=== PATIENT | male | born 1935 | race African-American/Black ===

== ENCOUNTER 2017-04-17 12:54 | Inpatient (IN) | payer MEDICARE ==
[~2017-04-17] VITALS: Ht 180.3 cm; Wt 64.1 kg
[2017-04-17 14:35] LABS: BASOPHILS % 0.7 % (0.0-2.0); EOSINOPHILS % 2.5 % (0.0-5.0); HEMOGLOBIN. 11.6 g/dL (14.0-18.0); LYMPHOCYTES % 41.3 % (20.0-50.0); MEAN CORPUSCULAR HEMOGLOBIN 26.3 pg (28.0-32.0); MEAN CORPUSCULAR VOLUME 79.4 fL (80.0-94.0); MONOCYTES % 9.7 % (2.0-8.0); NEUTROPHILS % 45.8 % (40.0-76.0); PLATELET 246 x1000/uL (130-400); RED BLOOD CELL COUNT 4.41 mill/uL (4.7-6.1); RED CELL DISTRIBUTION WIDTH 15.1 % (11.6-14.6)
[2017-04-17 14:41] LABS: INR 1.1; PROTHROMBIN TIME 10.9 sec
[2017-04-17 14:48] LABS: CARBON DIOXIDE 31 mEq/L (21-32); CHLORIDE 107 mEq/L (98-107)
[2017-04-17] MEDS ORDERED: ASPIRIN 325MG EC TABLET PO ONE (15:45)
[2017-04-17] MEDS ORDERED: DIPHENHYDRAMINE 50MG/ML VIAL IV PRN (18:00)
[2017-04-17] MEDS ORDERED: MAGNESIUM/ALUMINUM HYDROXIDE/SIMETHICONE 30ML UDC PO PRN (18:00)
[2017-04-17] MEDS ORDERED: NITROGLYCERIN 0.4MG TABLET SL SL PRN (18:00)
[2017-04-17] MEDS ORDERED: IPRATROPIUM/ALBUTEROL 0.5-3(2.5)MG/3ML NEB INH PRN (18:00)
[2017-04-17] MEDS ORDERED: CLONIDINE 0.1MG TABLET PO PRN (18:00)
[2017-04-17] MEDS ORDERED: NA PHOS,M-B/NA PHOS,DI-BA ENEMA 118ML PR PRN (18:00)
[2017-04-17] MEDS ORDERED: ACETAMINOPHEN 325MG TABLET PO PRN (18:00)
[2017-04-17] MEDS ORDERED: GUAIFENESIN 200MG/10ML SUGAR FREE UDC PO PRN (18:00)
[2017-04-17] MEDS ORDERED: TRAMADOL 50MG TABLET PO PRN (18:00)
[2017-04-17] MEDS ORDERED: LORAZEPAM 2MG/ML CPJ IV PRN (18:00)
[2017-04-17] MEDS ORDERED: DOCUSATE SODIUM 100MG CAPSULE PO PRN (18:00)
[2017-04-17] MEDS ORDERED: ONDANSETRON HCL 4MG/2ML VIAL IV PRN (18:00)
[2017-04-17 18:19] LABS: TOTAL IRON BINDING CAPACITY 201 ug/dL (250-450)
[2017-04-17 18:50] LABS: VITAMIN B12 SERUM 628 pg/mL (211-911)
[2017-04-17 19:01] LABS: FOLIC ACID (FOLATE) SERUM > 20.00 ng/mL (>5.38)
[2017-04-17 20:25] VITALS: BP 146/84
[2017-04-17 20:30] VITALS: BP 146/84
[2017-04-17] MEDS ORDERED: ZOLPIDEM TARTRATE 5MG TABLET PO PRN (21:00)
[2017-04-17] MEDS: ENOXAPARIN 40MG/0.4ML SYR SUBCUT SCH (21:17)
[2017-04-17 23:34] LABS: CREATINE KINASE 37 IU/L (39-308); CREATINE KINASE MB FRACTION 0.6 ng/mL (0.5-3.6); TROPONIN I < 0.02 ng/mL (0.00-0.04)
[2017-04-18] VITALS: BP 117/67
[2017-04-18 04:00] VITALS: BP 106/69
[2017-04-18 07:01] LABS: CREATINE KINASE 34 IU/L (39-308); CREATINE KINASE MB FRACTION < 0.5 ng/mL (0.5-3.6); TROPONIN I < 0.02 ng/mL (0.00-0.04)
[2017-04-18 08:00] VITALS: BP 110/72
[2017-04-18] MEDS: ASPIRIN 325MG EC TABLET PO SCH (09:00)
[2017-04-18] MEDS: PANTOPRAZOLE SODIUM 40 MG/VIAL IV SCH (09:20)
[2017-04-18] MEDS: ZINC SULFATE 220 MG ( 50 ) CAPSULE PO SCH (09:20)
[2017-04-18 11:19] LABS: BASOPHILS % 0.8 % (0.0-2.0); HEMATOCRIT. 32.8 % (42.0-52.0); HEMOGLOBIN. 10.9 g/dL (14.0-18.0); LYMPHOCYTES % 38.7 % (20.0-50.0); MEAN CORPUSCULAR HEMOGLOBIN 26.2 pg (28.0-32.0); MEAN CORPUSCULAR VOLUME 78.8 fL (80.0-94.0); MEAN PLATELET VOLUME 7.8 fl (7.4-10.4); MONOCYTES % 10.6 % (2.0-8.0); NEUTROPHILS % 46.9 % (40.0-76.0); PLATELET 237 x1000/uL (130-400); RED BLOOD CELL COUNT 4.16 mill/uL (4.7-6.1)
[2017-04-18] MEDS ORDERED: REGADENOSON 0.4 MG/5 ML IV SCH (11:30)
[2017-04-18 11:32] LABS: CARBON DIOXIDE 26 mEq/L (21-32); CHLORIDE 108 mEq/L (98-107)
[2017-04-18 12:00] VITALS: BP 111/77
[2017-04-18] MEDS ORDERED: REGADENOSON 0.4 MG/5 ML IV ONE (12:07)
[2017-04-18] MEDS: METRONIDAZOLE 500MG TABLET PO SCH ×2 (14:00→21:21)
[2017-04-18 17:22] VITALS: BP 107/68
[2017-04-18 20:00] VITALS: BP 119/70
[2017-04-18] MEDS: ENOXAPARIN 40MG/0.4ML SYR SUBCUT SCH (21:21)
[2017-04-19] VITALS: BP 107/65
[2017-04-19 04:00] VITALS: BP 100/65
[2017-04-19] MEDS: METRONIDAZOLE 500MG TABLET PO SCH ×3 (06:23→21:07)
[2017-04-19] MEDS: PANTOPRAZOLE SODIUM 40 MG/VIAL IV SCH (09:01)
[2017-04-19] MEDS: ASPIRIN 325MG EC TABLET PO SCH (09:01)
[2017-04-19] MEDS: ZINC SULFATE 220 MG ( 50 ) CAPSULE PO SCH (09:01)
[2017-04-19 12:03] VITALS: BP 105/57
[2017-04-19 16:00] VITALS: BP 114/64
[2017-04-19 20:00] VITALS: BP 111/61
[2017-04-19] MEDS: ENOXAPARIN 40MG/0.4ML SYR SUBCUT SCH (21:07)
[2017-04-20] VITALS: BP 103/61
[2017-04-20 04:00] VITALS: BP 104/59
[2017-04-20] MEDS: METRONIDAZOLE 500MG TABLET PO SCH ×3 (06:14→21:27)
[2017-04-20 08:00] VITALS: BP 131/81
[2017-04-20] MEDS: ASPIRIN 325MG EC TABLET PO SCH (09:19)
[2017-04-20] MEDS: ZINC SULFATE 220 MG ( 50 ) CAPSULE PO SCH (09:19)
[2017-04-20] MEDS: PANTOPRAZOLE SODIUM 40 MG/VIAL IV SCH (09:20)
[2017-04-20 12:00] VITALS: BP 133/78
[2017-04-20 16:00] VITALS: BP 114/68
[2017-04-20 20:00] VITALS: BP 106/61
[2017-04-20] MEDS: ENOXAPARIN 40MG/0.4ML SYR SUBCUT SCH (20:21)
[2017-04-21] VITALS: BP 113/63
[2017-04-21 04:00] VITALS: BP 104/64
[2017-04-21] MEDS: METRONIDAZOLE 500MG TABLET PO SCH ×2 (05:59→13:51)
[2017-04-21] MEDS: PANTOPRAZOLE SODIUM 40 MG/VIAL IV SCH (07:55)
[2017-04-21] MEDS: ZINC SULFATE 220 MG ( 50 ) CAPSULE PO SCH (07:55)
[2017-04-21 07:56] VITALS: BP 109/65
[2017-04-21] MEDS: ASPIRIN 325MG EC TABLET PO SCH (07:56)
[2017-04-21 12:13] VITALS: BP 126/84
[2017-04-21 13:17] VITALS: BP 126/84
[2017-04-21 14:14] LABS: FECAL FAT NEUTRAL Normal (.); FECAL FAT TOTAL Normal (.)
[2017-04-22] MEDS ORDERED: PANTOPRAZOLE SODIUM 40 MG/VIAL IV SCH (09:00)
[2017-04-22] MEDS ORDERED: FAMOTIDINE 20MG TABLET PO SCH (09:00)
== END 2017-04-21 14:34 | disposition home or self-care (01) | DRG 391 ==
LOC: ER 12:55 → 7WST 15:57 → EDBEDREQ 15:59 → SUPCPDRO 17:45 → ENRESERV 18:36
PROVIDERS: ADMIT Internal Medicine; ATTEND Internal Medicine
DX: K21.9 Gastro-esophageal reflux disease without esophagitis (principal); E43 Unspecified severe protein-calorie malnutrition; A04.7 Enterocolitis due to Clostridium difficile; K62.5 Hemorrhage of anus and rectum; Z68.1 Body mass index [BMI] 19.9 or less, adult; D63.8 Anemia in other chronic diseases classified elsewhere; F17.200 Nicotine dependence, unspecified, uncomplicated; Z71.6 Tobacco abuse counseling
CPT/HCPCS: 36415; 78452; 80053; 80061; 82550; 82553; 82607; 82705; 82746; 83036; 83540; 83550; 84484; 85025; 85610; 87015; 87045; 87427; 87449; 87493; 89055; 93005; 93017; 93306; 93970; 97116; 97162; 97166; 99285; A9500; C9113; J1200; J1650; J2405; J2785